=== PATIENT | male | born 1985 | race Two or more races ===

== ENCOUNTER → 2019-04-29 | Day surgery (SDC) | payer OTHER ==
[~2019-04-29] VITALS: Ht 172.7 cm; Wt 72.6 kg
[~2019-04-29] MED LIST: LIDOCAINE VISCOUS 2% 15ML UD ONE; MIDAZOLAM HCL 5 MG/ML-1ML VIAL ONE; SODIUM CHLORIDE LOCK 0 ML ONE; diphenhdrAMINE HCL 50 MG/1 ML VL ONE; fentaNYL CITRATE 100 MCG/2 ML VL ONE
[2019-04-29 08:07] LABS: Basophils # (auto) 0 uL; Basophils % (auto) 0.7 % (0.0-2.0); Eosinophils # (auto) 0.1 uL; Eosinophils % (auto) 2.4 % (0.0-7.0); Hematocrit 42.7 % (41.0-53.0); Hemoglobin 14.7 g/dL (13.5-17.5); Lymphocytes # (auto) 2.4 uL; Lymphocytes % (auto) 46.9 % (10.0-50.0); Mean Corpuscular Hemoglobin 28.1 pg (28.0-32.0); Mean Corpuscular Hgb Conc. 34.4 g/dL (32.0-36.0); Mean Corpuscular Volume 81.6 fL (80.0-100.0); Monocytes # (auto) 0.4 uL; Monocytes % (auto) 8.3 % (0.0-12.0); Neutrophils # (auto) 2.1 uL; Neutrophils % (auto) 41.7 % (37.0-80.0); Nucleated Red Blood Cells % 0.1 %; Platelet Count (auto) 233 10^3/uL (140-450); Red Blood Cells 5.23 10^6/uL (4.5-5.90); Red Cell Distribution Width 13.8 % (11.8-14.3); White Blood Cell 5.1 10^3/uL (4.4-10.8)
[2019-04-29 08:19] LABS: INR 1.08 (0.9-1.15); Partial Thromboplastin Time 29.2 sec (23.64-32.05)
== END | disposition home or self-care (01) ==
LOC: SUR 06:10
PROVIDERS: ATTEND Internal Medicine Gastroenterology
DX: Z53.9 Procedure and treatment not carried out, unspecified reason (principal); R10.12 Left upper quadrant pain; K92.1 Melena; Z80.0 Family history of malignant neoplasm of digestive organs
CPT/HCPCS: 36415; 85025; 85610; 85730; J2250